=== PATIENT | female | born 1935 | race African-American/Black ===

== ENCOUNTER 2020-08-09 06:39 | Emergency (ER) | payer OTHER, BC ==
[~2020-08-09] VITALS: Ht 152.4 cm; Wt 88.5 kg
[~2020-08-09 06:39] MED LIST: AMARYL1 MG PO; AMARYL2 MG PO; ASA81BEC PO; B12INJ PO; CLARITIN10 M3 PO; CO Q-10200 MG PO; CRESTOR10 MG PO; DIOVAN160 MG PO; DOXYCYCLINE 10100 MG PO; FISH OIL 1,001000 M2 PO; FLAX OIL1000 MG PO; FLONASE 0.05%50 MCG NASAL; KLOR-CON 1010 MEQ PO; LASIX 20 MG TAB20 MG PO; LASIX 40 MG TAB40 M2 PO; MAGNESIUM OXID400 MG PO; MAGNESIUM OXID500 MG PO; NORCO 5-325 TA1 EACH PO; POTASSIUM20 PO; PREDNISONE 5 MG5 M1 PO; PROAIR HFA8.5 GM INH; SYMBICORT160 MCG/4. INH; TIMOLOL GL0.5 %/5 M1 OPHTHALMIC; VITAMIN B-121000 MCG PO; VITAMIN D31000 UNI2 PO; XALATAN2.5 M1 OPHTHALMIC
[2020-08-09] MEDS ORDERED: COQ-10100 MG PO (06:53)
[2020-08-09] MEDS ORDERED: DUREZOL5 ML RT. EYE (06:54)
[2020-08-09] MEDS ORDERED: FISH OIL 1,0001 EAC9 PO (06:55)
[2020-08-09] MEDS ORDERED: COZAAR 25 MG TA25 M1 PO (06:57)
[2020-08-09] MEDS ORDERED: WIXELA 250-501 EACH INH (06:59)
[2020-08-09] MEDS ORDERED: OXYGEN MISCELL (06:59)
[2020-08-09 08:35] LABS: HEMATOCRIT 37.1 % (37.0-47.0); HEMOGLOBIN 11.3 gm/dL (12.0-15.0); MCH 27.3 pg (26.0-34.0); MCHC 30.5 g/dL (28.0-37.0); MCV 89.3 fL (80.0-100.0); PLATELET COUNT 275 thou/uL (150-400); RBC 4.16 mil/uL (4.20-5.00); RDW 15.5 % (10.5-14.5); WBC 8.2 thou/uL (4.0-11.0)
[2020-08-09 09:50] LABS: URINE BILIRUBIN NEGATIVE (Negative); URINE BLOOD TRACE (Negative); URINE COLOR YELLOW; URINE GLUCOSE-RANDOM* 1+ (Negative); URINE KETONES NEGATIVE (Negative); URINE NITRITE-REFLEX NEGATIVE (Negative); URINE PROTEIN (DIPSTICK) NEGATIVE (Negative); URINE SPECIFIC GRAVITY <= 1.005 (1.005-1.035); URINE UROBILINOGEN 0.2 E.U./dl (0.2-1.0)
[2020-08-09 09:51] LABS: URINE LEUKOCYTES-REFLEX 2+ (Negative)
[2020-08-09 09:52] LABS: URINE CLARITY HAZY
--- NOTE | 2020-08-09 10:10 | EKG ---
[facility] [place] [address] ELECTROCARDIOGRAM REPORT Name: OSMANI PENA Room #: REG [facility]#: [id number] Admission: 08/09/20 Attend Phys: Discharge: Date of : 37 Report #: [id number] THIS REPORT FOR: cc: Ramesh Sanz MD, Christopher B. MD Lundgren,Luther Pena MD [facility] ~ THIS REPORT FOR: //name// [facility] ED Test Date: 2020-08-09 Test Time: 08:44:26 Pat Name: OSMANI MCKEONB Department: Room: Gender: Supervisor [employer]: GABRIELLA GARCIA : 1935 Requested By: Danny Barton Order Number: [id number] MD: Luther Segura Measurements Intervals Kerrick Rate: 77 P: 36 TN: 170 QRS: -17 QRSD: 138 T: 32 QT: 405 QTc: 459 Interpretive Statements Sinus rhythm Right bundle branch block Baseline wander in lead(s) V3,V4 Compared to ECG 03/16/2014 07:39:43 Right bundle-branch block now present Electronically Signed On 08-09-2020 10:10:36 [employer] by Luther Segura [email or web address] <ELECTRONICALLY SIGNED> By: Luther Segura MD, [facility] 08/09/20 1010 Luther Segura MD, [facility] /EPI
[2020-08-09 10:53] LABS: BACTERIA-REFLEX None Seen /HPF (None Seen); CASTS None Seen /LPF (None Seen); CRYSTALS None Seen /LPF (None Seen); SQUAMOUS None Seen /LPF (0-3); URINE RBC None Seen /HPF (0-2); URINE WBC-REFLEX 6-15 Few /HPF (0-5)
[2020-08-09 11:02] LABS: ABSOLUTE NEUTROPHILS 6.1 thou/uL (1.4-8.2); ANISOCYTOSIS SLIGHT; BURR CELLS OCCASIONAL; METAMYELOCYTES 1 %; MYELOCYTES 2 %; POIKILOCYTOSIS SLIGHT
[2020-08-09 12:28] LABS: CALCIUM 9.3 mg/dL (8.5-10.1); POTASSIUM 4.5 mmol/L (3.5-5.1)
[2020-08-09 12:35] LABS: ALBUMIN 2.7 g/dL (3.4-5.0); TOTAL BILIRUBIN 0.4 mg/dL (0.2-1.0); TOTAL PROTEIN 7.6 g/dL (6.4-8.2)
[2020-08-09 12:49] VITALS: BP 172/79
[2020-08-09 13:09] LABS: MAGNESIUM 2.1 mg/dL (1.8-2.4)
== END 2020-08-09 12:49 | disposition home or self-care (01) ==
LOC: ER 06:39
PROVIDERS: Emergency Medicine
DX: H40.9 Unspecified glaucoma (principal); R51.9 Headache, unspecified; I10 Essential (primary) hypertension; J44.9 Chronic obstructive pulmonary disease, unspecified; E78.5 Hyperlipidemia, unspecified; E11.9 Type 2 diabetes mellitus without complications; Z90.710 Acquired absence of both cervix and uterus; Z79.899 Other long term (current) drug therapy; Z79.82 Long term (current) use of aspirin; Z88.1 Allergy status to other antibiotic agents; Z88.8 Allergy status to other drugs, medicaments and biological substances